=== PATIENT | female | born 1945 | race Caucasian/White ===

== ENCOUNTER 2018-02-06 15:29 | Emergency (ER) | payer MEDICARE, OTHER ==
--- NOTE | 2018-02-06 16:53 | EDM.PDOC ---
ED HPI GENERAL MEDICAL PROBLEM - General Chief Complaint: Lower Extremity Injury/Pain Stated Complaint: SWELLING IN BOTH LEGS Time Seen by Provider: 02/06/18 16:43 Source of Information: Reports: Patient, RN Notes Reviewed History Limitations: Reports: No Limitations - History of Present Illness INITIAL COMMENTS - FREE TEXT/NARRATIVE: 72-year-old female presents emergency department day complaint of bilateral leg edema, she states the left is worse than the right but her biggest concern is a blood clot she recently returned from a seven-day driving journey from [place]. Denies any shortness of breath or chest pain Bilateral Knee Pain Score (Numeric/FACES): 9 - Related Data Allergies Allergy/AdvReac Type Severity Reaction Status Date / Time ketamine Allergy Delusions Verified 02/06/18 16:20 Home Meds: Home Meds ClonazePAM [KlonoPIN] 0.5 mg PO TID 02/06/18 [History] Ibuprofen 800 mg PO ASDIRECTED PRN 02/06/18 [History] Nabumetone [Relafen] 500 mg PO BID 02/06/18 [History] Past Medical History Genitourinary History: Reports: Other (See Below) Other Genitourinary History: implantated devise for urination. 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 , Musculoskeletal History: Reports: Fracture - Past Surgical History GI Surgical History: Reports: Appendectomy, Cholecystectomy Female Surgical History: Reports: Salpingo-Oophorectomy Musculoskeletal Surgical History: Reports: Knee Replacement Social & Family History - Tobacco Use Smoking Status *Q: Never Smoker - Caffeine Use Caffeine Use: Reports: Coffee - Recreational Drug Use Recreational Drug Use: No Review of Systems - Review of Systems Review Of Systems: See Below Respiratory: Reports: No Symptoms Cardiovascular: Reports: Edema GI/Abdominal: Reports: No Symptoms Genitourinary: Reports: No Symptoms Musculoskeletal: Reports: Muscle Pain (Bilateral leg pain) ED EXAM, GENERAL - Physical Exam Exam: See Below Free Text/Narrative:: Examination lower extremities I don't appreciate any pitting edema there tender to palpation posterior calf Homans sign is negative Exam Limited By: No Limitations General Appearance: Alert, WD/WN, No Apparent Distress Respiratory/Chest: No Respiratory Distress, Lungs Clear, Normal Breath Sounds Cardiovascular: Regular Rate, Rhythm, No Murmur Course - Vital Signs Last Recorded V/S: Last Vital Signs Temp 97.9 F 02/06/18 16:25 Pulse 93 02/06/18 16:25 Resp 16 02/06/18 16:25 BP 151/95 H 02/06/18 16:25 Pulse Ox 97 02/06/18 16:25 - Orders/Labs/Meds Labs: Laboratory Tests 02/06/18 02/06/18 02/06/18 Range/Units 17:02 17:02 17:02 WBC 10.2 (4.5-11.0) K/uL RBC 4.58 (3.30-5.50) M/uL Hgb 14.3 (12.0-15.0) g/dL Hct 42.7 (36.0-48.0) % MCV 93 (80-98) fL MCH 31 (27-31) pg MCHC 34 (32-36) % Plt Count 262 (150-400) K/uL Neut % (Auto) 68 H (36-66) % Lymph % (Auto) 21 L (24-44) % [place] % (Auto) 8 H (2-6) % Eos % (Auto) 2 (2-4) % Baso % (Auto) 1 (0-1) % D-Dimer, Quantitative 378 (0.0-400.0) ng/mL Sodium 147 (140-148) mmol/L Potassium 4.1 (3.6-5.2) mmol/L Chloride 108 (100-108) mmol/L Carbon Dioxide 29 (21-32) mmol/L Anion Gap 10.1 (5.0-14.0) mmol/L BUN 15 (7-18) mg/dL Creatinine 1.1 H (0.6-1.0) mg/dL Est Cr Clr Drug Dosing 42.64 mL/min Estimated GFR (MDRD) 49 L (>60) Glucose 151 H (74-106) mg/dL Calcium 8.4 L (8.5-10.1) mg/dL Departure - Departure Time of Disposition: 18:12 Disposition: Home, Self-Care 01 Condition: Good Clinical Impression: Bilateral leg pain - Discharge Information Referrals: PCP,None [Primary Care Provider] - Forms: ED Department Discharge Additional Instructions: Continue with the ibuprofen for baseline pain control, for breakthrough pain try the hydrocodone as needed, continue to use the Jong wraps as needed for comfort, recommend follow-up with primary care in 3-5 days for reevaluation - Assessment/Plan Plan: Assessment Acuity = acute Site and laterality = bilateral leg pain Etiology = unclear etiology Manifestations = none Location of injury = Home Lab values = CBC, BMP, d-dimer all negative Plan Prescription written for hydrocodone 5/325 one tab by mouth 3 times a day when necessary total #6, Jong wrap provided for lower extremity her follow-up with primary care in 3-5 days for reevaluation This note was dictated using [email or web address] voice recognition software please call with any questions on syntax or grammar.
== END 2018-02-06 18:36 | disposition home or self-care (01) ==
LOC: JP.ED 15:29
DX: M25.561 Pain in right knee (principal); M25.562 Pain in left knee; Z88.8 Allergy status to other drugs, medicaments and biological substances; Z79.899 Other long term (current) drug therapy
CPT/HCPCS: 36415; 80048; 85025; 85379; 99283; 99284

== ENCOUNTER 2020-10-05 10:02 | Emergency (ER) | payer MEDICARE, OTHER ==
--- NOTE | 2020-10-05 10:47 | EDM.PDOC ---
ED HPI GENERAL MEDICAL PROBLEM - General Chief Complaint: General Stated Complaint: HIGH BP AND CHEST PAINS Time Seen by Provider: 10/05/20 10:50 Source of Information: Reports: Patient, Old Records, RN History Limitations: Reports: No Limitations - History of Present Illness INITIAL COMMENTS - FREE TEXT/NARRATIVE: 74 yo female with a pHx of fibromyalgia, anxiety, and a cardiac pacemaker presents with 5 days of her current symptoms. This morning her home BP machine read a high number so she came right in. Does not have SOB or nausea. No calf pain or LE edema. Onset: Gradual Onset Date: 09/30/20 Duration: Day(s): (5), Waxing/Waning Location: Reports: Chest Quality: Reports: Other (tender to touch) Severity: Mild Improves with: Reports: None Worsens with: Reports: Other (bending over) Context: Reports: Other (See HPI) Associated Symptoms: Reports: Chest Pain. Denies: Diaphoresis, Nausea/Vomiting, Shortness of Breath Treatments COMPOSITION MIXER: Reports: Other (see below) (none) Anterior Chest Pain Score (Numeric/FACES): 3 - Related Data Allergies Allergy/AdvReac Type Severity Reaction Status Date / Time ketamine Allergy Delusions Verified 10/05/20 10:22 Home Meds: Home Meds Ibuprofen 800 mg PO ASDIRECTED PRN 02/06/18 [History] Cholecalciferol (Vitamin D3) [Vitamin D3] 1,000 unit PO DAILY 10/05/20 [History] Cyanocobalamin (Vitamin B-12) [Vitamin B-12] 1,000 mcg PO DAILY 10/05/20 [History] DULoxetine [Cymbalta] 30 mg PO DAILY 10/05/20 [History] Levothyroxine 25 mcg PO ACBREAKFAST 10/05/20 [History] Pramipexole [Mirapex] 1 tab PO DAILY 10/05/20 [History] carvediloL [Carvedilol] 3.125 mg PO BID 10/05/20 [History] metFORMIN [Glucophage] 500 mg PO DAILY 10/05/20 [History] Past Medical History HEENT History: Reports: Impaired Vision Cardiovascular History: Reports: [place], Pacemaker, Other (See Below) Other Cardiovascular History: heart valve Genitourinary History: Reports: Other (See Below) Other Genitourinary History: implantated devise for urination. 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 , Musculoskeletal History: Reports: Fracture Psychiatric History: Reports: Anxiety, Depression Endocrine/Metabolic History: Reports: Hypothyroidism, Obesity/BMI 30+ Dermatologic History: Reports: Benign Melanoma, Other (See Below) Other Dermatologic History: basil cell - Infectious Disease History Infectious Disease History: Reports: Chicken Pox, Measles, Mumps - Past Surgical History Cardiovascular Surgical History: Reports: Valve Replacement Other Cardiovascular Surgeries/Procedures: january 29 valve replacement GI Surgical History: Reports: Appendectomy, Cholecystectomy Female Surgical History: Reports: Salpingo-Oophorectomy Musculoskeletal Surgical History: Reports: Knee Replacement Social & Family History - Caffeine Use Caffeine Use: Reports: Coffee ED ROS GENERAL - Review of Systems Review Of Systems: See Below Constitutional: Reports: No Symptoms HEENT: Reports: No Symptoms Respiratory: Reports: No Symptoms Cardiovascular: Reports: Chest Pain Endocrine: Reports: No Symptoms GI/Abdominal: Reports: No Symptoms : Reports: No Symptoms Musculoskeletal: Reports: No Symptoms Skin: Reports: No Symptoms Neurological: Reports: No Symptoms Psychiatric: Reports: Anxiety ED EXAM, GENERAL - Physical Exam Exam: See Below Exam Limited By: No Limitations General Appearance: Alert, WD/WN, No Apparent Distress, Obese Eye Exam: Bilateral Eye: Normal Inspection Ears: Normal External Exam, Normal Canal, Hearing Grossly Normal Ear Exam: Bilateral Ear: Auricle Normal, Canal Normal Nose: Normal Inspection, No Blood Throat/Mouth: Normal Inspection, Normal Lips, Normal Oropharynx, Normal Voice, No Airway Compromise Head: Atraumatic, Normocephalic Neck: Normal Inspection Respiratory/Chest: No Respiratory Distress, Lungs Clear, Normal Breath Sounds, No Accessory Muscle Use, Other (some sternal tenderness present on palpation. ). No: Chest Non-Tender Cardiovascular: Regular Rate, Rhythm, No Edema GI/Abdominal: Normal Bowel Sounds, Soft, Non-Tender Back Exam: Normal Inspection. No: CVA Tenderness (R), CVA Tenderness (L) Extremities: Normal Inspection, Normal Range of Motion, Non-Tender, No Pedal Edema Neurological: Alert, Oriented, CN II-XII Intact, Normal Cognition, No Motor/Sensory Deficits Psychiatric: Normal Affect, Normal Mood Skin Exam: Warm, Dry, Intact, Normal Color, No Rash #1 Interpretation EKG Date: 10/05/20 Time: 10:35 Rhythm: Other (paced rhythm) Rate (Beats/Min): 86 Comparison: No Change Course - Vital Signs Last Recorded V/S: Last Vital Signs Temp 35.8 C L 10/05/20 10:23 Pulse 92 10/05/20 10:23 Resp 18 10/05/20 10:23 BP 109/82 10/05/20 10:23 Pulse Ox 93 L 10/05/20 10:23 - Orders/Labs/Meds Orders: Active Orders 24 hr Category Date Time Status Cardiac Monitoring [RC] .As Directed Care 10/05/20 10:29 Active EKG Documentation Completion [RC] ASDIRECTED Care 10/05/20 10:29 Active EKG 12 Lead [EK] Routine Ther 10/05/20 10:29 Ordered Labs: Laboratory Tests 10/05/20 10/05/20 Range/Units 11:09 11:09 D-Dimer, Quantitative 840.63 H (0.0-500.0) ng/mL Troponin I < 0.017 (0.000-0.056) ng/mL Meds: Medications Discontinued Medications Generic Name Dose Route Start Last Admin Trade Name Freq PRN Reason Stop Dose Admin Acetaminophen 1,000 mg 10/05/20 11:04 10/05/20 11:26 Tylenol Extra Strength PO 10/05/20 11:05 1,000 mg ONETIME ONE Administration Departure - Departure Time of Disposition: 11:55 Disposition: Home, Self-Care 01 Condition: Good Clinical Impression: Chest wall pain - Discharge Information *PRESCRIPTION DRUG MONITORING PROGRAM REVIEWED*: Not Applicable *COPY OF PRESCRIPTION DRUG MONITORING REPORT IN PATIENT JENNIFER: Not Applicable Referrals: Susi Reynaga PA-C [Primary Care Provider] - Forms: ED Department Discharge Additional Instructions: Take acetaminophen 1000 mg every 6 hrs for pain relief. F/U with your provider in a week for recheck. Sepsis Event Note (ED) - Evaluation Sepsis Screening Result: No Definite Risk - Focused Exam Vital Signs: Vital Signs Temp Pulse Resp BP BP Pulse Ox 10/05/20 10:23 35.8 C L 92 18 109/82 108/84 93 L 10/05/20 10:20 35.8 C L 92 18 109/82 108/84 93 L - My Orders Last 24 Hours: My Active Orders 10/05/20 10:29 Cardiac Monitoring [RC] .As Directed EKG Documentation Completion [RC] ASDIRECTED EKG 12 Lead [EK] Routine - Assessment/Plan Last 24 Hours: My Active Orders 10/05/20 10:29 Cardiac Monitoring [RC] .As Directed EKG Documentation Completion [RC] ASDIRECTED EKG 12 Lead [EK] Routine
[2020-10-05] MEDS: Acetaminophen 500 MG Tab PO ONE (11:26)
== END 2020-10-05 12:30 | disposition home or self-care (01) ==
LOC: JP.ED 10:02
DX: R07.89 Other chest pain (principal); I25.2 Old myocardial infarction; E66.9 Obesity, unspecified; E03.9 Hypothyroidism, unspecified; Z88.4 Allergy status to anesthetic agent; Z68.41 Body mass index [BMI] 40.0-44.9, adult; Z79.899 Other long term (current) drug therapy
CPT/HCPCS: 36415; 84484; 85379; 93005; 99284; 99285-25; A9270-GY

== ENCOUNTER 2022-03-18 10:23 | Emergency (ER) | payer MEDICARE ==
[2022-03-18] MEDS ORDERED: Aspirin 81 MG Tab.Chew PO ONE (11:27)
[2022-03-18] MEDS ORDERED: Sodium Chloride 0.9% 500 ML IV ONE (12:01)
[2022-03-18] MEDS ORDERED: Sodium Chloride 0.9% 10 ML Syringe FLUSH PRN (12:05)
[2022-03-18] MEDS ORDERED: Sodium Chloride 0.9% 100 ML IV SCH (12:30)
[2022-03-18] MEDS ORDERED: Iopamidol 755 Mg/ML 100 ML Bottle IV SCH (12:30)
[2022-03-18] MEDS ORDERED: diphenhydrAMINE 50 MG/ML SDV ONE (12:44)
[2022-03-18] MEDS ORDERED: diphenhydrAMINE 50 MG/ML SDV IVPUSH ONE (12:48)
[2022-03-18] MEDS ORDERED: predniSONE 20 MG Tab PO ONE (13:51)
== END 2022-03-18 14:31 | disposition home or self-care (01) ==
LOC: JP.ED 10:23
DX: R07.89 Other chest pain (principal); E11.9 Type 2 diabetes mellitus without complications; I25.2 Old myocardial infarction; E03.9 Hypothyroidism, unspecified; E66.9 Obesity, unspecified; Z68.38 Body mass index [BMI] 38.0-38.9, adult; Z95.0 Presence of cardiac pacemaker; Z86.16 Personal history of COVID-19; Z91.041 Radiographic dye allergy status; Z88.4 Allergy status to anesthetic agent
CPT/HCPCS: 36415; 71045; 71275; 80048; 83880; 84484; 85025; 85379; 93005; 96374; 99285; A9270; J1200; J3490; J7040; J7512; Q9967; 93010; 99283